=== PATIENT | female | born 1965 | race Caucasian/White ===

== ENCOUNTER 2017-03-19 19:47 | Emergency (ER) | payer OTHER ==
[2017-03-19 19:57] VITALS: BP 129/64
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
== END 2017-03-19 20:10 | disposition home or self-care (01) ==
LOC: FB.ED 19:47
DX: S70.12XA Contusion of left thigh, initial encounter (principal); Z88.6 Allergy status to analgesic agent; Z91.013 Allergy to seafood; V86.92XA Unspecified occupant of snowmobile injured in nontraffic accident, initial encounter
CPT/HCPCS: 99283